=== PATIENT | male | born 1970 | race Caucasian/White ===

== ENCOUNTER 2018-06-19 13:14 | Emergency (ER) | payer OTHER ==
[~2018-06-19] VITALS: Ht 172.7 cm; Wt 73.5 kg
[2018-06-19 13:22] VITALS: Ht 172.7 cm; Wt 73.5 kg
[2018-06-19 13:54] LABS: BASOPHIL % 0.7 % (0-2); PLATELET COUNT 399 x10^3mcL (130-400); RED CELL DISTRIBUTION WIDTH 12.6 % (11.5-14.5)
[2018-06-19 14:29] LABS: CALCIUM 8.1 mg/dL (8.5-10.1); CHLORIDE SERUM 99 mmol/L (98-107); CREATININE SERUM 0.9 mg/dL (0.7-1.3); GFR1 > 60 mL/min; GLUCOSE SERUM 141 mg/dL (74-106); POTASSIUM SERUM 3.4 mmol/L (3.5-5.1); SODIUM SERUM 134 mmol/L (136-145)
[2018-06-19 14:33] LABS: ALKALINE PHOSPHATASE 146 U/L (46-116); ALT/SGPT 34 U/L (16-63); AST/SGOT 43 U/L (15-37); BILIRUBIN TOTAL 0.4 mg/dL (0.20-1.00)
[2018-06-19 14:33] LABS: AMPHETAMINE QUAL UR POSITIVE (See below)
[2018-06-19 14:34] LABS: ALBUMIN 2.7 g/dL (3.4-5.0); TOTAL PROTEIN, SERUM 8.3 g/dL (6.4-8.2)
[2018-06-19 15:18] VITALS: BP 139/96
== END 2018-06-19 15:18 | disposition home or self-care (01) ==
LOC: ED 13:14
PROVIDERS: Emergency Medicine
DX: F31.9 Bipolar disorder, unspecified (principal); I10 Essential (primary) hypertension; F19.10 Other psychoactive substance abuse, uncomplicated; E87.6 Hypokalemia; F17.210 Nicotine dependence, cigarettes, uncomplicated; Z71.6 Tobacco abuse counseling; Z00.8 Encounter for other general examination
CPT/HCPCS: 36415; 99406; G0480

== ENCOUNTER 2018-10-12 12:38 | Emergency (ER) | payer OTHER ==
[~2018-10-12] VITALS: Ht 172.7 cm; Wt 77.1 kg
[2018-10-12 12:46] VITALS: BP 123/85; Ht 172.7 cm; Wt 77.1 kg
== END 2018-10-12 13:37 | disposition home or self-care (01) ==
LOC: ED 12:38
DX: S06.9X0A Unspecified intracranial injury without loss of consciousness, initial encounter (principal); I10 Essential (primary) hypertension; F31.9 Bipolar disorder, unspecified; F17.200 Nicotine dependence, unspecified, uncomplicated; Y08.89XA Assault by other specified means, initial encounter; Y93.89 Activity, other specified; Y92.89 Other specified places as the place of occurrence of the external cause; Y99.8 Other external cause status